=== PATIENT | female | born 1975 | race Two or more races ===

== ENCOUNTER → 2016-09-28 | Outpatient (CLI) | payer OTHER ==
[~2016-09-28] VITALS: Ht 154.9 cm; Wt 66.7 kg
[~2016-09-28] MED LIST: CYCL10TA2 PO; FLUC150T PO; IBUP-1027 PO; LIDOCAINE 1% / SOD BICARB 8.4% 20 ML VIAL. IJ ONE; LIDOCAINE 2%/EPI 1:100,000 20 ML VIAL. IJ ONE; NAPR500T PO
[2016-09-28 09:00] VITALS: BP 142/76
--- NOTE | 2016-09-29 17:00 | PATHOLOGY ---
PATHOLOGY REPORT * * * * * * * * FINAL DIAGNOSIS: A. Breast tissue, right breast 10:00 core biopsies: - INVASIVE HIGH-GRADE DUCTAL CARCINOMA. SEE COMMENT. B. Breast tissue, right breast 9:00 core biopsies: - FOCAL INVASIVE HIGH-GRADE DUCTAL CARCINOMA. - Stromal fibrosis and focal lobular chronic inflammation. C. Lymph node, right axilla core biopsy: - METASTATIC POORLY DIFFERENTIATED ADENOCARCINOMA. COMMENT: Sections of the right breast 10:00 core biopsy reveal an invasive high-grade ductal carcinoma. The tumor shows little to no tubule formation, marked nuclear pleomorphism, and prominent mitotic activity. There is no lymphovascular tumor invasion. There are no tumor-associated calcifications. Invasive carcinoma measures up to 1.5 cm in greatest dimension on the glass slide. Sections of the right breast 9:00 core biopsy reveal segments of breast tissue showing stromal fibrosis, focal lobular chronic inflammation, and several foci of invasive high-grade ductal carcinoma having an appearance similar to that present in the 10:00 biopsy. These foci measure up to 0.4 cm in greatest dimension. There is no lymphovascular tumor invasion or tumor-associated calcifications. Sections of the right axilla core biopsy show extensive replacement of lymph node by a metastatic poorly differentiated adenocarcinoma. The case is also examined by Dr. Ramona Reis, who concurs with the diagnosis. Breast prognostic studies will be obtained on block A1, the results of which will be reported separately. (JPM:mgdiamond; d/t: 09/29/16) REPORT ELECTRONICALLY SIGNED BY: Gaurav Huerta M.D. DATE/TIME: 09/29/2016 16:59 * * * * * * * * GROSS PATHOLOGY: A. Received in formalin labeled "Tayler López and right breast 10:00," are three needle cores of yellow-naylor fibrofatty tissue measuring 1.8 x 0.6 x 0.2 cm in aggregate dimensions. The tissue is submitted in its entirety in cassette A1. The cold ischemic time is less than 1 minute. The total formalin fixation time is 11 hours and 40 minutes. B. Received in formalin labeled "Tayler López and right breast 9:00," are four needle cores of yellow-naylor fibrofatty tissue measuring 2.3 x 0.8 x 0.2 cm in aggregate dimensions. The tissue is submitted in its entirety in cassettes B1-B2. The cold ischemic time is less than 1 minute. The total formalin fixation time is approximately 11 hours and 40 minutes. C. Received in formalin labeled "Tayler López and right axilla," are several needle cores of white-padron fibrofatty tissue measuring 1.2 x 0.4 x 0.2 cm in aggregate dimensions. The tissue is submitted in its entirety in cassette C1. The cold ischemic time is less than 1 minute. The total formalin fixation time is 11 hours and 25 minutes. (TTL; 09/28/2016) INITIAL CPT CODE(S): A; 27667, 11122(4) B; 36157 C; 61184 Professional services [place] [place] [address] Technical services performed by [facility] at [address] [place] [address] [address] [address]. [place] [address] phone: [phone] fax: [phone] SPECIMEN(S) RECEIVED: A.Right breast 10 o'clock-3.5 cm (14g core) B.Right breast 9 o'clock-2.0cm (vacuum assisted) C.Right axilla 12mm (18g cores) CLINICAL HISTORY: Multiple right breast masses and abnormal lymph nodes PATIENT: TAYLER MELO /AGE: 1105/14/1975 (Age: 41) PATIENT #: [id number] ALT CASE #: SPECIMEN COLLECTION DATE: 09/28/2016 SPECIMEN RECEIVED DATE: 09/28/2016 [facility] - [address] [place] [address] - PHONE: [phone] * * * END OF REPORT * * *
--- NOTE | 2016-09-30 09:26 | RAD ---
Ultrasound-guided right breast biopsy #1, 09/28/2016: History: Breast masses and suspicious axillary nodes We first targeted a 3.4 cm heterogeneous mass at the 2:00 location in the right breast. Under local anesthesia, aseptic conditions and sonographic guidance a 13-gauge guiding needle was passed into this lesion via a medial approach. [id number] core samples were obtained and sent to pathology for evaluation. A biopsy marker was then deposited at the biopsy site. The needle was then removed and hemostasis obtained. Ultrasound guided right axillary node biopsy, 09/28/2016: Previous studies demonstrated a suspicious hypoechoic node in the right axilla. Today's preliminary scans demonstrated more numerous hypoechoic nodes. We targeted a cluster of 2 of these lesions, the largest of which measures approximately 11 mm. Both of these nodes demonstrate a lack of a normal echogenic hilum. Under local anesthesia, aseptic conditions and sonographic guidance a 17-gauge guiding needle was passed into the edge of this node cluster via a medial approach. Three 18-gauge core samples were obtained from the largest node and the sample sent to pathology for evaluation. A biopsy marker was deposited at the biopsy site. The needle was removed and hemostasis obtained. Ultrasound-guided right breast biopsy #2, 09/28/2016: Previous studies demonstrated a second irregular 2.1 cm hypoechoic mass at the 9:00 location in the right breast. Under local anesthesia, aseptic and sonographic guidance the ScanSafeC biopsy instrument was passed into this mass via a lateral approach. Multiple 12-gauge vacuum-assisted core samples were obtained and sent to pathology for evaluation. A biopsy marker was deposited at the biopsy site. The biopsy instrument was then removed and hemostasis obtained. Two view mammograms were then obtained to document the positions of the biopsy markers. The patient tolerated these procedures well and left the department in good condition. Note: The subsequent pathology reports indicated that the 10:00 breast lesion represented invasive high-grade ductal carcinoma. The 9:00 right breast lesion represented focal invasive high-grade ductal carcinoma. The biopsied right axillary lymph node contained metastatic poorly differentiated adenocarcinoma. Personnel in Dr. Damon's office was notified of these results at 9:23 AM on 09/30/2016.
== END | disposition home or self-care (01) ==
LOC: US 08:42
PROVIDERS: ATTEND Surgery
DX: N63 Unspecified lump in breast (principal)
CPT/HCPCS: 76942; C1713; G0206; 77065